=== PATIENT | male | born 1940 | race Caucasian/White ===

== ENCOUNTER 2018-07-02 11:13 | Outpatient (CLI) | payer MEDICARE ==
[2018-07-02] MEDS ORDERED: CALCIUM PO (12:22)
[2018-07-02] MEDS ORDERED: NAPR220C2 PO (12:22)
[2018-07-02] MEDS ORDERED: OMEG-170 PO (12:22)
[2018-07-02] MEDS ORDERED: MAGNESIUM PO (12:22)
[2018-07-02] MEDS ORDERED: GLUC15006 PO (12:22)
[2018-07-02] MEDS ORDERED: FINA5TAB4 PO (12:22)
[2018-07-02] MEDS ORDERED: DIAZ5TAB4 PO (12:22)
[2018-07-02] MEDS ORDERED: MULT-717 PO (12:22)
[2018-07-02] MEDS ORDERED: LOSA50TA14 PO (12:22)
[2018-07-02] MEDS ORDERED: FLAX OIL PO (12:22)
== END 2018-07-02 23:59 | disposition home or self-care (01) ==
LOC: STAR 11:13
PROVIDERS: ATTEND Orthopaedic Surgery
DX: Z02.9 Encounter for administrative examinations, unspecified (principal)

== ENCOUNTER 2018-07-13 06:33 | Observation (INO) | payer MEDICARE ==
[~2018-07-13] VITALS: Ht 182.9 cm; Wt 89.0 kg
[~2018-07-13 06:33] MED LIST: CALCIUM PO; DIAZ5TAB4 PO; FINA5TAB4 PO; FLAX OIL PO; GLUC15006 PO; LOSA50TA14 PO; MAGNESIUM PO; MULT-717 PO; NAPR220C2 PO; OMEG-170 PO
[2018-07-13] MEDS ORDERED: KETOROLAC 60 MG/2 ML ONE (07:01)
[2018-07-13] MEDS ORDERED: TRANEXAMIC ACID 100 MG/ML, 10ML ONE ×4 (07:02)
[2018-07-13] MEDS ORDERED: EPINEPHRINE 1 MG/ML, 1ML ONE (07:02)
[2018-07-13] MEDS ORDERED: ROPIvacaine/PF 0.2%, 20 ML ONE ×2 (07:02→08:24)
[2018-07-13] MEDS: LACTATED RINGERS 1,000 ML IV SCH ×3 (07:29→15:46)
[2018-07-13] MEDS ORDERED: ACETAMINOPHEN 500 MG TABLET PO ONE (07:30)
[2018-07-13] MEDS ORDERED: GABAPENTIN 300 MG CAPSULE PO ONE (07:30)
[2018-07-13] MEDS ORDERED: PROMETHAZINE 25 MG/ML, 1ML IM PRN ×3 (07:30→10:00)
[2018-07-13] MEDS ORDERED: ONDANSETRON 4 MG TABLET PO PRN (07:30)
[2018-07-13] MEDS ORDERED: DIPHENHYDRAMINE 25 MG CAPSULE PO PRN (07:30)
[2018-07-13] MEDS ORDERED: ACETAMINOPHEN 650 MG/20.3 ML UDC PO PRN (07:30)
[2018-07-13] MEDS ORDERED: PROMETHAZINE 12.5 MG SUPP PR PRN ×2 (07:30→10:00)
[2018-07-13] MEDS ORDERED: ALUMINUM/MAG/SIMETHICONE 30 ML UDC PO PRN (07:30)
[2018-07-13] MEDS ORDERED: MAGNESIUM HYDROXIDE 8%, 30ML UDC PO PRN (07:30)
[2018-07-13] MEDS ORDERED: HYDROmorphone 2 MG/ML, 1ML IV PRN (07:30)
[2018-07-13] MEDS ORDERED: ONDANSETRON 2MG/ML, 2ML IV PRN ×2 (07:30→10:00)
[2018-07-13] MEDS ORDERED: SENNA/DOCUSATE TABLET PO PRN (07:30)
[2018-07-13] MEDS ORDERED: LIDOCAINE-MPF 1%, 2ML INFIL ONE (07:30)
[2018-07-13] MEDS ORDERED: FENTANYL PF 250 MCG/5ML ONE (08:23)
[2018-07-13] MEDS ORDERED: PROPOFOL 10 MG/ML, 20ML ONE (08:25)
[2018-07-13] MEDS ORDERED: CEFAZOLIN 1,000 MG ONE (08:25)
[2018-07-13] MEDS ORDERED: GLYCOPYRROLATE 0.2MG/1ML, 5ML ONE (08:25)
[2018-07-13] MEDS ORDERED: NEOSTIGMINE 1 MG/ML, 10ML ONE (08:25)
[2018-07-13] MEDS ORDERED: ROCURONIUM 10MG/ML,5ML ONE (08:25)
[2018-07-13] MEDS: DOCUSATE 100 MG CAPSULE PO SCH (09:00)
[2018-07-13] MEDS ORDERED: MORPHINE SULFATE 4 MG/ML, 1ML IVPush PRN (10:00)
[2018-07-13] MEDS ORDERED: PROMETHAZINE 25 MG/ML, 1ML IV PRN (10:00)
[2018-07-13] MEDS ORDERED: TRANEXAMIC ACID 1,000 MG in SODIUM CHLORIDE 0.9% 100 ML IVPB ONE (10:00)
[2018-07-13] MEDS ORDERED: ONDANSETRON ODT 8 MG PO PRN (10:00)
[2018-07-13] MEDS ORDERED: OXYcodone 5 MG/5 ML ORAL.SOL UDC PO PRN (10:00)
[2018-07-13] MEDS ORDERED: LABETALOL 5MG/ML, 20ML IV PRN (10:00)
[2018-07-13] MEDS ORDERED: hydrALAzine 20 MG/ML, 1ML IV PRN (10:00)
[2018-07-13] MEDS ORDERED: PROMETHAZINE 25 MG SUPP PR PRN (10:00)
[2018-07-13] MEDS ORDERED: MEPERIDINE/PF 25MG/0.5ML IVPush PRN (10:00)
[2018-07-13] MEDS ORDERED: HYDROmorphone 2 MG/ML, 1ML IVPush PRN (10:00)
[2018-07-13] MEDS ORDERED: FENTANYL PF 100 MCG/2ML ONE ×3 (10:40→11:49)
[2018-07-13] MEDS ORDERED: OXYcodone 5 MG/5 ML ORAL.SOL UDC ONE (11:49)
[2018-07-13] MEDS: FENTANYL PF 100 MCG/2ML IV PRN ×2 (11:55→12:11)
[2018-07-13] MEDS ORDERED: hydrALAzine 20 MG/ML, 1ML ONE (12:13)
[2018-07-13] MEDS: DIAZEPAM 5 MG/ML, 10ML VIAL IVPush PRN ×2 (12:20→15:47)
[2018-07-13 13:15] VITALS: BP 161/70
[2018-07-13] MEDS ORDERED: DIAZEPAM 5 MG TABLET PO PRN (14:00)
[2018-07-13] MEDS: D5%-0.45NACL+KCL 20MEQ 1,000 ML IV SCH ×2 (16:12→17:29)
[2018-07-13] MEDS: CEFAZOLIN PMX 1GM/50ML 50 ML IVPB SCH (16:15)
[2018-07-13] MEDS: OXYcodone IR 5MG TABLET PO PRN (16:33)
[2018-07-13] MEDS: TAMSULOSIN 0.4 MG CAP.ER.24H PO SCH (17:53)
[2018-07-13] MEDS: ASPIRIN 81 MG TABLET EC PO SCH (17:53)
[2018-07-13 19:02] VITALS: BP 136/68
[2018-07-13 19:20] VITALS: BP 138/70
[2018-07-13 23:27] VITALS: BP 136/69
[2018-07-14] MEDS: DOCUSATE 100 MG CAPSULE PO SCH ×2 (00:29→08:51)
[2018-07-14] MEDS: CEFAZOLIN PMX 1GM/50ML 50 ML IVPB SCH (00:29)
[2018-07-14] MEDS: D5%-0.45NACL+KCL 20MEQ 1,000 ML IV SCH (03:29)
[2018-07-14 04:04] VITALS: BP 140/71
[2018-07-14] MEDS: OXYcodone IR 5MG TABLET PO PRN ×2 (04:15→08:51)
[2018-07-14] MEDS ORDERED: DEXAMETHASONE 4 MG/ML, 1ML IVPush SCH (06:00)
[2018-07-14] MEDS ORDERED: DEXAMETHASONE 4 MG/ML, 5ML ONE (07:00)
[2018-07-14] MEDS: ASPIRIN 81 MG TABLET EC PO SCH (07:18)
[2018-07-14] MEDS ORDERED: KETOROLAC 30 MG/1 ML IV SCH (07:30)
[2018-07-14 08:02] VITALS: BP 122/65
[2018-07-14] MEDS ORDERED: ASPI-515 PO (08:40)
[2018-07-14] MEDS ORDERED: MELO7.5T5 PO (08:41)
[2018-07-14] MEDS ORDERED: ONDA4TAB13 PO (08:42)
[2018-07-14] MEDS ORDERED: DOCU-131 PO (08:43)
[2018-07-14] MEDS ORDERED: TRAM50TA2 PO (08:44)
[2018-07-14] MEDS ORDERED: OXYC5TAB3 PO (08:45)
[2018-07-14] MEDS: TAMSULOSIN 0.4 MG CAP.ER.24H PO SCH (08:48)
[2018-07-14] MEDS ORDERED: LOSARTAN 50MG TABLET PO SCH (09:00)
[2018-07-14] MEDS ORDERED: FINASTERIDE 5 MG TABLET PO SCH (09:00)
== END 2018-07-14 12:03 | disposition home or self-care (01) ==
LOC: OUT 06:33 → ORIP 07:29 → 4NOR 13:09 → DCLOUNGE 07-14 11:38
PROVIDERS: ADMIT Orthopaedic Surgery; ATTEND Orthopaedic Surgery
DX: M17.11 Unilateral primary osteoarthritis, right knee (principal)
CPT/HCPCS: 27447; 36415; 73560; 85014; 85018; 87806; 93005; 96365; 96366; 96375; 97116; 97150; 97161; 97165; C1713; C1776; G0378; G8978; G8979; G8980; J0171; J0360; J0690; J1100; J1885; J2704; J2710; J2795; J3010; J3360; J3480; J3490; J7120; G0475

== ENCOUNTER 2018-09-07 05:55 | Inpatient (IN) | payer MEDICARE ==
[~2018-09-07] VITALS: Ht 185.4 cm; Wt 94.5 kg
[~2018-09-07 05:55] MED LIST changes: +ASPI-515 PO; +DOCU-131 PO; +MELO7.5T5 PO; +ONDA4TAB13 PO; +OXYC5TAB3 PO; +TRAM50TA2 PO
[2018-09-07] MEDS ORDERED: ACETAMINOPHEN 500 MG TABLET PO ONE (06:30)
[2018-09-07] MEDS ORDERED: LACTATED RINGERS 1,000 ML IV SCH (06:30)
[2018-09-07] MEDS ORDERED: GABAPENTIN 300 MG CAPSULE PO ONE (06:30)
[2018-09-07 06:31] VITALS: BP 171/81
[2018-09-07] MEDS ORDERED: KETOROLAC 60 MG/2 ML ONE (06:50)
[2018-09-07] MEDS ORDERED: BUPIVACAINE/PF 0.5% ONE (06:50)
[2018-09-07] MEDS ORDERED: ROPIvacaine/PF 0.2%, 20 ML ONE ×2 (06:50→06:58)
[2018-09-07] MEDS ORDERED: TRANEXAMIC ACID 100 MG/ML, 10ML ONE ×4 (06:50)
[2018-09-07] MEDS ORDERED: TRIAMCINOLONE ACETONIDE 40 MG/ML, 1ML ONE (06:50)
[2018-09-07] MEDS ORDERED: VANCOMYCIN 1,000 MG ONE (06:51)
[2018-09-07] MEDS ORDERED: LIDOCAINE 1%, 20ML ONE (06:51)
[2018-09-07] MEDS ORDERED: SODIUM CHLORIDE 0.9% 50 ML ONE (06:51)
[2018-09-07] MEDS ORDERED: EPINEPHRINE 1 MG/ML, 1ML ONE (06:51)
[2018-09-07] MEDS ORDERED: MIDAZOLAM 1 MG/ML, 2ML ONE (07:52)
[2018-09-07] MEDS ORDERED: FENTANYL PF 250 MCG/5ML ONE (07:52)
[2018-09-07] MEDS ORDERED: DEXAMETHASONE 4 MG/ML, 1ML ONE (08:04)
[2018-09-07] MEDS ORDERED: ROCURONIUM 10MG/ML,5ML ONE (08:04)
[2018-09-07] MEDS ORDERED: CEFAZOLIN 1,000 MG ONE (08:04)
[2018-09-07] MEDS ORDERED: SUCCINYLCHOLINE 20 MG/ML, 10ML ONE (08:04)
[2018-09-07] MEDS ORDERED: ONDANSETRON 2MG/ML, 2ML ONE (08:04)
[2018-09-07] MEDS ORDERED: PROPOFOL 10 MG/ML, 20ML ONE (08:04)
[2018-09-07] MEDS ORDERED: TRANEXAMIC ACID 100 MG/ML, 10ML IVPB ONE (08:25)
[2018-09-07] MEDS ORDERED: EPINEPHRINE 1 MG/ML, 1ML INFIL ONE (08:25)
[2018-09-07] MEDS ORDERED: KETOROLAC 60 MG/2 ML IM ONE (08:25)
[2018-09-07] MEDS ORDERED: ROPIvacaine/PF 0.2%, 20 ML INFIL ONE (08:25)
[2018-09-07] MEDS ORDERED: HYDROmorphone 2 MG/ML, 1ML IVPush PRN (09:00)
[2018-09-07] MEDS ORDERED: OXYcodone 5 MG/5 ML ORAL.SOL UDC PO PRN (09:00)
[2018-09-07] MEDS ORDERED: LORazepam 2 MG/ML, 1ML IVPush PRN ×2 (09:00→10:00)
[2018-09-07] MEDS ORDERED: hydrALAzine 20 MG/ML, 1ML IV PRN (09:00)
[2018-09-07] MEDS ORDERED: FENTANYL PF 100 MCG/2ML IV PRN (09:00)
[2018-09-07] MEDS ORDERED: METOCLOPRAMIDE 5 MG/ML, 2ML IV PRN (09:00)
[2018-09-07] MEDS ORDERED: LABETALOL 5MG/ML, 20ML IV PRN (09:00)
[2018-09-07] MEDS ORDERED: MEPERIDINE/PF 25MG/0.5ML IVPush PRN (09:00)
[2018-09-07] MEDS ORDERED: MORPHINE SULFATE 4 MG/ML, 1ML IVPush PRN (09:00)
[2018-09-07] MEDS ORDERED: ALUMINUM/MAG/SIMETHICONE 30 ML UDC PO PRN (10:00)
[2018-09-07] MEDS ORDERED: DIAZEPAM 5 MG TABLET PO PRN (10:00)
[2018-09-07] MEDS ORDERED: HYDROmorphone 1 MG/ML, 1ML INJ IV PRN (10:00)
[2018-09-07] MEDS ORDERED: LORazepam 1MG TABLET PO PRN (10:00)
[2018-09-07] MEDS ORDERED: ONDANSETRON 2MG/ML, 2ML IV PRN (10:00)
[2018-09-07] MEDS ORDERED: SENNA/DOCUSATE TABLET PO PRN (10:00)
[2018-09-07] MEDS ORDERED: BISACODYL 10 MG SUPP PR PRN (10:00)
[2018-09-07] MEDS ORDERED: HYDROcodone/APAP 5/325 TABLET PO PRN (10:00)
[2018-09-07] MEDS ORDERED: ONDANSETRON 4 MG TABLET PO PRN (10:00)
[2018-09-07] MEDS ORDERED: PROMETHAZINE 25 MG/ML, 1ML IM PRN (10:00)
[2018-09-07] MEDS ORDERED: ACETAMINOPHEN 650 MG/20.3 ML UDC PO PRN (10:00)
[2018-09-07] MEDS ORDERED: MAGNESIUM HYDROXIDE 8%, 30ML UDC PO PRN (10:00)
[2018-09-07] MEDS ORDERED: DIPHENHYDRAMINE 50 MG CAPSULE PO PRN (10:00)
[2018-09-07] MEDS ORDERED: ZOLPIDEM 5MG TABLET PO PRN (10:00)
[2018-09-07] MEDS ORDERED: PROMETHAZINE 12.5 MG SUPP PR PRN (10:00)
[2018-09-07] MEDS ORDERED: HYDROmorphone 1 MG/ML, 1ML VIAL ONE (10:15)
[2018-09-07] MEDS ORDERED: FENTANYL PF 100 MCG/2ML ONE (10:15)
[2018-09-07] MEDS ORDERED: OXYcodone 5 MG/5 ML ORAL.SOL UDC ONE (10:15)
[2018-09-07] MEDS ORDERED: TRANEXAMIC ACID 1,000 MG in SODIUM CHLORIDE 0.9% 100 ML IVPB ONE (10:30)
[2018-09-07] MEDS ORDERED: DIAZEPAM 5 MG TABLET ONE (10:36)
[2018-09-07] MEDS ORDERED: CEFAZOLIN PMX 2GM/50ML 50 ML IVPB SCH (11:30)
[2018-09-07] MEDS ORDERED: CEFAZOLIN 2,000 MG in SODIUM CHLORIDE 0.9% 50 ML IVPB SCH (12:00)
[2018-09-07] MEDS: D5%-0.45% NACL 1,000 ML IV SCH (12:54)
[2018-09-07 12:58] VITALS: BP 120/67
[2018-09-07] MEDS: LOSARTAN 50MG TABLET PO SCH (14:53)
[2018-09-07] MEDS: ASPIRIN 81 MG TABLET EC PO SCH (17:12)
[2018-09-07] MEDS: OXYcodone IR 5MG TABLET PO PRN ×2 (17:12→21:24)
[2018-09-07 20:17] VITALS: BP 142/64
[2018-09-07] MEDS: DOCUSATE 100 MG CAPSULE PO SCH (21:00)
[2018-09-08 00:02] VITALS: BP 111/53
[2018-09-08] MEDS: D5%-0.45% NACL 1,000 ML IV SCH (02:20)
[2018-09-08 03:56] VITALS: BP 114/57
[2018-09-08] MEDS: ASPIRIN 81 MG TABLET EC PO SCH (05:14)
[2018-09-08] MEDS: OXYcodone IR 5MG TABLET PO PRN ×3 (05:14→10:56)
[2018-09-08] MEDS ORDERED: DEXAMETHASONE 4 MG/ML, 1ML IVPush SCH (06:00)
[2018-09-08 07:50] VITALS: BP 128/62
[2018-09-08] MEDS: LOSARTAN 50MG TABLET PO SCH (07:59)
[2018-09-08] MEDS ORDERED: FINASTERIDE 5 MG TABLET PO SCH (09:00)
[2018-09-08] MEDS: DOCUSATE 100 MG CAPSULE PO SCH (09:00)
[2018-09-08] MEDS ORDERED: MULTIVITAMINS/MINERALS TABLET PO SCH (09:00)
[2018-09-08] MEDS ORDERED: KETOROLAC 30 MG/1 ML IV SCH (10:00)
[2018-09-08] MEDS ORDERED: OXYC5TAB3 PO (10:02)
[2018-09-08 10:55] VITALS: BP 133/69
== END 2018-09-08 11:30 | disposition home or self-care (01) | DRG 469 ==
LOC: OUT 05:55 → ORIP 09:58 → 4NOR 11:14 → DCLOUNGE 09-08 11:11
PROVIDERS: ADMIT Orthopaedic Surgery; ATTEND Orthopaedic Surgery
PROC: 3E0T3BZ Introduction of Anesthetic Agent into Peripheral Nerves and Plexi, Percutaneous Approach (ICD-10-PCS; 2018-09-07)
PROC: 0SRD069 Replacement of Left Knee Joint with Oxidized Zirconium on Polyethylene Synthetic Substitute, Cemented, Open Approach (ICD-10-PCS; principal; 2018-09-07 08:00)
PROC: 5A09357 Assistance with Respiratory Ventilation, Less than 24 Consecutive Hours, Continuous Positive Airway Pressure (ICD-10-PCS; 2018-09-08)
DX: M17.12 Unilateral primary osteoarthritis, left knee (principal); J96.20 Acute and chronic respiratory failure, unspecified whether with hypoxia or hypercapnia; G47.33 Obstructive sleep apnea (adult) (pediatric); N40.0 Benign prostatic hyperplasia without lower urinary tract symptoms; Z96.651 Presence of right artificial knee joint; I10 Essential (primary) hypertension; Z88.2 Allergy status to sulfonamides
CPT/HCPCS: 36415; 85014; 85018; C1713; G0378; J0171; J0690; J1100; J1170; J1885; J2250; J2405; J2704; J2795; J3010; J3301; J3370; J3490; C1776; J0330; J7120